=== PATIENT | female | born 1995 | race Caucasian/White ===

== ENCOUNTER → 2017-11-19 | Outpatient (CLI) | payer MEDICAID ==
[~2017-11-19] MED LIST: PREN1CAP7 PO
== END ==
LOC: HPND 14:59
PROVIDERS: ATTEND Obstetrics & Gynecology
DX: Z36.3 Encounter for antenatal screening for malformations (principal)
CPT/HCPCS: 76805

== ENCOUNTER 2017-12-04 11:04 | Emergency (ER) | payer MEDICAID ==
--- NOTE | 2017-12-04 11:13 | PD ---
HPI Chief Complaint Leg swelling Date Seen: Dec 04, 2017 Time Seen: 11:13 Travel History International Travel<30 Days: No Contact w/Intl Traveler<30Days: No History of Present Illness HPI Patient is a 22 year old at 23 weeks gestation by first trimester US, ANGEL 03/31/2018, who presents to the OB ED with bilateral LE swelling. It started this morning and is described as throbbing. She denies leakage of fluid, vaginal bleeding, and contractions. She feels baby moving regularly. She denies LA/N/V/D/fever/sick contacts/SOB/calf pain/dizziness/seeing spots. OB care is with [facility]. Of note, patient has gained 28lb this so far, and she gained this amount during entire previous . Prepregnancy with 170 lb, currently 198lb. History Past Medical History Medical History: Denies Significant Hx Obstetric History Obstetric History G1: 3 yr male, , no complications reported G2: current Past Surgical History Surgical History: No Previous Surgery Family History Family History: Negative Social History Alcohol Use: No Tobacco Use: Yes (1/2 PPD whole ) Substance Abuse: No Allergies-Medications (Allergen,Severity, Reaction): Coded Allergies: No Known Allergies (Unverified Adverse Reaction, Unknown, 09/11/17) Home Meds Active Scripts W/O Vit A W/ Fe Fumar (Citranatal [place]) 27-1-260 Mg Cap, 1 CAP PO DAILY for Nutritional Supplement, #30 CAP 11 Refills Prov:Greta Kelly 08/15/17 W/O Vit A W/ Fe Fumar (Citranatal [place]) 27-1-260 Mg Cap, 1 CAP PO DAILY for Nutritional Supplement, #30 CAP 0 Refills Prov:David Nguyen MD 08/15/17 Review of Systems Except as stated in HPI: all other systems reviewed are Neg Physical Exam Narrative GENERAL: Well-nourished, well-developed patient. SKIN: Warm and dry. No rashes or ecchymoses. HEAD: Normocephalic and atraumatic. EYES: No scleral icterus. No injection or drainage. ENT: No nasal drainage noted. Mucous membranes pink. Airway patent. NECK: Supple, trachea midline. No JVD. CARDIOVASCULAR: Regular rate and rhythm without murmurs, gallops, or rubs. RESPIRATORY: Breath sounds equal bilaterally. No accessory muscle use. ABDOMEN/GI: Abdomen soft, non-tender, bowel sounds present, no rebound, no guarding. Gravid to 20 weeks. GENITOURINARY: deferred Uterine Contractions: absent FHR: 150s EXTREMITIES: No significant cyanosis or edema. 39cm bilaterally and equal. No nodules or cords palpable. Tenderness is bilaterally and generalized. Negative Guanaco's bilaterally. BACK: Nontender without obvious deformity. No CVA tenderness. NEUROLOGICAL: Awake and alert. Motor and sensory grossly within normal limits. Five out of 5 muscle strength in all muscle groups. Normal speech. Data Data Vital Signs Reviewed: Yes (BP 116/57, P80, R18, T 98F) MDM Medical Record Reviewed: Yes Narrative Course / MDM 22 year old at 23 weeks gestation by first trimester US, ANGEL 03/31/2018 presenting with LE bilateral pain and swelling. Lower Extremity Pain: Low suspicion for DVT based on history and exam. Leg swelling is bilateral and consistent with state. VS wnl and no respiratory symptoms to increase suspicion for PE. Wells score 0, suggesting low probability of PE or DVT. Likely related to weight gain (already 28 lb in second trimester), counseled. Patient reluctant to take acetaminophen at home, counseled on safety of this medication during . Counseled on cessation of smoking and taking PNV. Discharge home with close f/u with her OB provider. Intrauterine : Normal HR in second trimester, reassuring. [facility] follow up scheduled PO hydration recommended, PNV recommended Routine care CHARLES Mae Diagnosis Diagnosis: Primary Impression: related leg pain in second trimester, antepartum Disposition: DISCHARGE HOME Condition: Stable Patient Instructions: General Instructions Virginia Serrato MD Dec 04, 2017 11:13
[2017-12-04] MEDS ORDERED: ACETAMINOPHEN 325 MG TAB PO ONE (11:45)
== END 2017-12-04 11:59 | disposition home or self-care (01) ==
LOC: HOBED 11:04
DX: O99.89 Other specified diseases and conditions complicating pregnancy, childbirth and the puerperium (principal); M79.89 Other specified soft tissue disorders; M79.606 Pain in leg, unspecified; O99.332 Smoking (tobacco) complicating pregnancy, second trimester; F17.210 Nicotine dependence, cigarettes, uncomplicated; Z3A.23 23 weeks gestation of pregnancy
CPT/HCPCS: 99282

== ENCOUNTER 2018-02-07 13:00 | Emergency (ER) | payer MEDICAID ==
--- NOTE | 2018-02-07 14:05 | PD ---
HPI Chief Complaint Abdominal pain, back pain Date Seen: Feb 07, 2018 Travel History International Travel<30 Days: No Contact w/Intl Traveler<30Days: No Known Affected Area: No History of Present Illness HPI Patient is a 22-year-old at 32/4 weeks gestation that presents to the [place] [facility] ED with a chief complaint of lower back pain 2 weeks and lower suprapubic abdominal pain that began this morning. Patient describes the suprapubic pain as a "tightening/squeezing pain that feels like her pelvic bone will break in half". This morning, patient states that when she went to urinates, she noticed blood when she wiped. This happened twice. In addition, patient reports abdominal pain that is not as bad as the back pain of the suprapubic pain and thick, creamy discharge that is more than normal. She denies fever/chills, nausea/vomiting, decreased appetite, chest pain, blurry vision, dysuria, vaginal itching. She endorses headaches and pedal edema during this . No gush/leakage of fluid and she has been feeling baby move. Patient gets her care at [facility] and states that her has been miserable but all her labs so far have been normal and her blood pressures have also been normal. She had an ultrasound on November 20 which showed a grade 1 posterior placenta with no signs of previa. Weeks Gestation: 32 Para: 1 : 2 History Past Medical History Medical History: Denies Significant Hx Obstetric History Obstetric History G1: 3 yr male, , no complications reported G2: current Past Surgical History Surgical History: No Previous Surgery Family History Narrative Family History No family history of asthma Maternal grandmother has diabetes and hypertension Social History Alcohol Use: No (Drank 1 glass of wine 3 days ago) Tobacco Use: Yes (5 cigarettes per day) Substance Abuse: No Allergies-Medications (Allergen,Severity, Reaction): Coded Allergies: No Known Allergies (Unverified Adverse Reaction, Unknown, 09/11/17) Home Meds Active Scripts Nitrofurantoin Macrocrystal (Nitrofurantoin Macrocrystal) 100 Mg Cap, 100 MG PO BID for Infection for 7 Days, #14 CAP 0 Refills Prov:Leslie Real MD R2 02/07/18 Metronidazole (Metronidazole) 500 Mg Tab, 500 MG PO BID for Infection for 7 Days , #14 TAB 0 Refills Prov:Leslie Real MD R2 02/07/18 W/O Vit A W/ Fe Fumar (Citranatal [place]) 27-1-260 Mg Cap, 1 CAP PO DAILY for Nutritional Supplement, #30 CAP 11 Refills Prov:Greta KellyP 08/15/17 W/O Vit A W/ Fe Fumar (Citranatal [place]) 27-1-260 Mg Cap, 1 CAP PO DAILY for Nutritional Supplement, #30 CAP 0 Refills Prov:David Nguyen MD 08/15/17 Review of Systems Except as stated in HPI: all other systems reviewed are Neg General / Constitutional: No: Fever, Chills Eyes: No: Blurred Vision HENT: Headaches Cardiovascular: Edema Respiratory: Short of Breath (When she sleeps at night) Gastrointestinal: Abdominal Pain, No: Nausea, Vomiting, Diarrhea, Loss of Appetite Genitourinary: Discharge, No: Dysuria, Vaginal Bleeding (Spotting when she wiped) Skin: No Rash Physical Exam Narrative GENERAL: Well-nourished, well-developed patient. SKIN: Warm and dry. HEAD: Normocephalic and atraumatic. EYES: No scleral icterus. No injection or drainage. ENT: No nasal drainage noted. Mucous membranes pink. Airway patent. NECK: Supple, trachea midline. No JVD. CARDIOVASCULAR: Regular rate and rhythm without murmurs, gallops, or rubs. RESPIRATORY: Breath sounds equal bilaterally. No accessory muscle use. ABDOMEN/GI: Abdomen soft, non-tender, bowel sounds present, no rebound, no guarding Gravid to 32 weeks size GENITOURINARY: External Genitalia: intact and normal in appearance Cervix: Posterior Dilatation: 0cm Effacement: 0% Station: -3 Presentation: [] Membranes: intact Uterine Contractions: none FHT's: Category: I Baseline: 130 Reactive: multiple accels present Variability: moderate Decels: none EXTREMITIES: No cyanosis or edema. BACK: Nontender without obvious deformity. Minimal CVA tenderness. NEUROLOGICAL: Awake and alert. Motor and sensory grossly within normal limits. Five out of 5 muscle strength in all muscle groups. Normal speech. SPECULUM EXAM: Vagina and cervix show no lesions, presence of cream colored frothy discharge. OS patent. No cervical friability. No blood seen in the vaginal vault Data Data Vital Signs Reviewed: Yes Orders Orders Urinalysis - C+S If Indicated (02/07/18 13:29) Vital Signs (Adult) .ON ADMISSION (02/07/18 13:31) ^ Labor Status (02/07/18 13:31) ^ Non Stress Test (02/07/18 13:31) ^ Hydration (02/07/18 13:31) Wet Prep Profile (02/07/18 13:50) Fentanyl Inj (Fentanyl Inj) (02/07/18 14:15) Labs Laboratory Tests Test 02/07/18 13:10 [facility] Medical Record Reviewed: Yes Interpretation(s) 22-year-old at 32/4 weeks gestation presents with suprapubic pain found to have a UTI and bacterial vaginosis Plan 1. IUP - heart tones category 1, reassuring -Continue routine care 2. UTI -UA shows moderate leukocyte esterase, 31 WBC, rare WBC clumps, small occult blood, culture indicated -UA findings and clinical assessment are consistent with acute cystitis -Start Macrobid 100 mg p.o. twice daily 7 days -Fentanyl 25 mcg IM 1 for pain -Encourage adequate hydration and Tylenol at home 3. Bacterial vaginosis -Wet prep profile pending, however, clue cells seen on urinalysis and frothy vaginal discharge consistent with bacterial vaginosis -Start Flagyl 500 mg p.o. twice daily 7 days Discharge home Diagnosis Diagnosis: Primary Impression: UTI (urinary tract infection) Additional Impression: Bacterial vaginosis Disposition: DISCHARGE HOME Condition: Stable Scripts Nitrofurantoin Macrocrystal (Nitrofurantoin Macrocrystal) 100 Mg Cap 100 MG PO BID for Infection for 7 Days, #14 CAP 0 Refills Prov: Leslie Real MD R2 02/07/18 Metronidazole (Metronidazole) 500 Mg Tab 500 MG PO BID for Infection for 7 Days, #14 TAB 0 Refills Prov: Leslie Real MD R2 02/07/18 Patient Instructions: Abdominal Pain in (ED), Urinary Tract Infection in (ED) Leslie Real MD R2 Feb 07, 2018 14:05
[2018-02-07 14:12] LABS: AMORPHOUS SEDIMENT, URINE RARE; BACTERIA, URINE MANY /hpf; BILIRUBIN, URINE NEG (NEG); BLOOD, URINE SMALL (NEG); GLUCOSE,URINE NEG (NEG); KETONE, URINE 10 mg/dL (NEG); MUCUS URINE FEW /lpf (OCC); NITRITE,URINE NEG (NEG); PH, URINE 6.5 (5.0-8.5); TRANSITIONAL EPI CELLS, URINE <1 /hpf; URINE COLOR YELLOW (YELLW/STRAW); URINE LEUKOCYTE ESTERASE MOD (NEG); WHITE BLOOD CELL CLUMPS RARE
[2018-02-07 14:13] LABS: SQUAMOUS EPITHELIAL CELL URINE 10 /hpf (0-5)
[2018-02-07] MEDS ORDERED: NITR1CAP36 PO (14:44)
[2018-02-07] MEDS ORDERED: METR1TAB76 PO (14:44)
== END 2018-02-07 14:56 | disposition home or self-care (01) ==
LOC: HOBED 13:00
DX: O23.43 Unspecified infection of urinary tract in pregnancy, third trimester (principal); O23.593 Infection of other part of genital tract in pregnancy, third trimester; B96.89 Other specified bacterial agents as the cause of diseases classified elsewhere; Z3A.32 32 weeks gestation of pregnancy
CPT/HCPCS: 59025; 81001; 87086; 87210; 96372; 99284; J3010

== ENCOUNTER 2018-03-26 15:09 | Inpatient (IN) ==
[2018-03-26] MEDS ORDERED: Measles/Mumps/Rubella Vaccine Inj 0.5 ML Vial SQ ONE (16:00)
[2018-03-26] MEDS ORDERED: Penicillin G Potassium Inj 5,000,000 UNIT in Sodium Chloride 0.9% Inj 100 ML IV.SIG ONE (16:00)
[2018-03-26] MEDS ORDERED: Naloxone Inj 0.4 MG/ML Vial IV.PUSH PRN ×2 (16:00→21:37)
[2018-03-26] MEDS ORDERED: fentaNYL Citrate Inj 100 MCG/2 ML Ampul IV.PUSH PRN (16:00)
[2018-03-26] MEDS ORDERED: Oxytocin 30 Units/500ml Premix 30 UNITS/500 ML BAG IV.SIG ONE (16:00)
[2018-03-26] MEDS ORDERED: Sodium Chlor 0.9% Inj 500 ML IV.SIG PRN (16:00)
[2018-03-26] MEDS ORDERED: Sod Chloride 0.9% Inj 1,000 ML IV.CONT PRN (16:00)
[2018-03-26] MEDS ORDERED: Citric Acid/Sodium Citrate Liq 30 ML UDC PO SCH (16:00)
[2018-03-26] MEDS ORDERED: Diphtheria/Tetanus/Pertussis Vaccine Inj 0.5 ML Syringe IM ONE (16:00)
--- NOTE | 2018-03-26 16:00 | ED ---
History of Present Illness Service: 22-year-old at 39/2 presenting to the OB ED with complaints of contractions. Patient states that for the last 3 hours she has been having contractions every 6 minutes and been increasing in intensity and frequency. She also states that today she has had some possible leakage of fluid as her underwear has been wet. Denies any gush of fluid. She also endorses some vaginal bleeding tonight prior to presentation. She states that she had blood on her toilet paper around 9 PM but it resolved by 3 AM. Somewhat less movement today as well. She denies any fever, shortness of breath, dysuria, constipation or diarrhea. Primary Care Physician: UNKNOWN Review of Systems All other systems reviewed negative except as stated in HPI PMFSH - Medical / Surgical Hx Neg / Unobtainable Medical Problems Denied: Yes Surgical History: No Previous Surgery - Tobacco History Smoking Status: Current every day smoker (10/d) - Alcohol History How Often Do You Have a Drink Containing Alcohol: Never - Substance Use History Substance History: No History of Abuse - Travel History Recent Travel in the [facility] Within the Last 8 Weeks: No Recent Travel Out of the Country Within the Last 8 Weeks: No Medications and Allergies Allergies Allergy/AdvReac Type Severity Reaction Status Date / Time No Known Allergies Allergy Verified 03/26/18 15:41 Home Medications Medication Instructions Recorded Confirmed Type No Known Home Medications 03/26/18 03/26/18 History Exam Vital signs: Vital Signs 03/26/18 15:35 Temperature 98.0 F Pulse Rate 96 H Respiratory Rate 18 Blood Pressure 132/63 Intake & Output 03/25/18 03/26/18 03/26/18 18:59 06:59 18:59 Weight 49.895 kg Narrative: GENERAL: Well-nourished, well-developed patient. SKIN: Warm and dry. HEAD: Normocephalic and atraumatic. EYES: No scleral icterus. No injection or drainage. ENT: No nasal drainage noted. Mucous membranes pink. Airway patent. NECK: Supple, trachea midline. No JVD. CARDIOVASCULAR: Regular rate and rhythm without murmurs, gallops, or rubs. RESPIRATORY: Breath sounds equal bilaterally. No accessory muscle use. ABDOMEN/GI: Abdomen soft, non-tender, bowel sounds present, no rebound, no guarding Gravid to 39 weeks size GENITOURINARY: External Genitalia: intact and normal in appearance Cervix: Posterior Dilatation: 5 cm Effacement: 50 Station: -3 Presentation: Vertex Membranes: Intact Uterine Contractions: Every 3-4 minutes FHT's: Category: 1 Baseline: 145 Reactive: y Variability: mod Decels: Absent EXTREMITIES: No cyanosis or edema. BACK: Nontender without obvious deformity. No CVA tenderness. NEUROLOGICAL: Awake and alert. Motor and sensory grossly within normal limits. Five out of 5 muscle strength in all muscle groups. Normal speech. Assessment and Plan - Plan 22-year-old 39/2 presenting to the OB ED with contractions and possible leakage of fluid. Found to be 5/50/-3. -Amnisure negative -GBS positive. No known allergies will treat with penicillin per protocol -Category 1 tracing with contractions every 3-4 minutes -Anticipate vaginal delivery. Otherwise routine labor and delivery orders Discharge Plan - Discharge Disposition Patient Disposition: 30 Still Patient - Physicians Team ED Provider: Jasiel Coughlin Primary Care Provider: Primary Care Renetta Mcclure - Rxs /Orders / Referrals /Forms Prescriptions: No Action No Known Home Medications - Discharge Instructions Print Language: Persian
--- NOTE | 2018-03-26 16:10 | P.HPOB ---
History of Present Illness Service: 22-year-old at 39/2 presenting to the OB ED with complaints of contractions. Patient states that for the last 3 hours she has been having contractions every 6 minutes and been increasing in intensity and frequency. She also states that today she has had some possible leakage of fluid as her underwear has been wet. Denies any gush of fluid. She also endorses some vaginal bleeding tonight prior to presentation. She states that she had blood on her toilet paper around 9 PM but it resolved by 3 AM. Somewhat less movement today as well. She denies any fever, shortness of breath, dysuria, constipation or diarrhea. Primary Care Physician: UNKNOWN Review of Systems All other systems reviewed negative except as stated in HPI PMFSH - Medical / Surgical Hx Neg / Unobtainable Medical Problems Denied: Yes Surgical History: No Previous Surgery - Tobacco History Smoking Status: Current every day smoker (10/d) - Alcohol History How Often Do You Have a Drink Containing Alcohol: Never - Substance Use History Substance History: No History of Abuse - Travel History Recent Travel in the [facility] Within the Last 8 Weeks: No Recent Travel Out of the Country Within the Last 8 Weeks: No Medications and Allergies Allergies Allergy/AdvReac Type Severity Reaction Status Date / Time No Known Allergies Allergy Verified 03/26/18 15:41 Home Medications Medication Instructions Recorded Confirmed Type No Known Home Medications 03/26/18 03/26/18 History Exam Vital signs: Vital Signs 03/26/18 15:35 Temperature 98.0 F Pulse Rate 96 H Respiratory Rate 18 Blood Pressure 132/63 Intake & Output 03/25/18 03/26/18 03/26/18 18:59 06:59 18:59 Weight 49.895 kg Narrative: GENERAL: Well-nourished, well-developed patient. SKIN: Warm and dry. HEAD: Normocephalic and atraumatic. EYES: No scleral icterus. No injection or drainage. ENT: No nasal drainage noted. Mucous membranes pink. Airway patent. NECK: Supple, trachea midline. No JVD. CARDIOVASCULAR: Regular rate and rhythm without murmurs, gallops, or rubs. RESPIRATORY: Breath sounds equal bilaterally. No accessory muscle use. ABDOMEN/GI: Abdomen soft, non-tender, bowel sounds present, no rebound, no guarding Gravid to 39 weeks size GENITOURINARY: External Genitalia: intact and normal in appearance Cervix: Posterior Dilatation: 5 cm Effacement: 50 Station: -3 Presentation: Vertex Membranes: Intact Uterine Contractions: Every 3-4 minutes FHT's: Category: 1 Baseline: 145 Reactive: y Variability: mod Decels: Absent EXTREMITIES: No cyanosis or edema. BACK: Nontender without obvious deformity. No CVA tenderness. NEUROLOGICAL: Awake and alert. Motor and sensory grossly within normal limits. Five out of 5 muscle strength in all muscle groups. Normal speech. Assessment and Plan - Plan 22-year-old 39/2 presenting to the OB ED with contractions and possible leakage of fluid. Found to be 5/50/-3. -Amnisure negative -GBS positive. No known allergies will treat with penicillin per protocol -Category 1 tracing with contractions every 3-4 minutes -Anticipate vaginal delivery. Otherwise routine labor and delivery orders
[2018-03-26 17:00] LABS: Baso % (Auto) 0.2 % (0.0-2.0); Eos # (Auto) 0.1 th/mm3 (0.0-0.4); Eos % (Auto) 0.9 % (0.0-4.0); Hematocrit 33.7 % (35.0-46.0); Hemoglobin 10.9 gm/dL (11.6-15.3); Lymph # (Auto) 2.7 th/mm3 (1.0-4.8); Lymph % (Auto) 15.9 % (9.0-44.0); Mean Corpuscular HGB Conc 32.5 % (32.0-36.0); Mean Corpuscular Hemoglobin 27.6 pg (27.0-34.0); Mean Platelet Volume 8.6 fL (7.0-11.0); Mono # (Auto) 1.1 th/mm3 (0.0-0.9); Mono % (Auto) 6.8 % (0.0-8.0); Neut # (Auto) 12.7 th/mm3 (1.8-7.7); Neut % (Auto) 76.2 % (16.0-70.0); Platelet Count 205 th/mm3 (150-450); Red Blood Count 3.97 mil/mm3 (4.00-5.30); Red Cell Distribution Width 15.2 % (11.6-17.2); White Blood Count 16.7 th/mm3 (4.0-11.0)
[2018-03-26] MEDS: fentaNYL Citrate Inj 100 MCG/2 ML Ampul IV.PUSH PRN ×2 (17:00→17:58)
[2018-03-26 17:16] LABS: Bacteria,Urine Occasional /hpf; Bilirubin,Urine Negative (Negative); Clarity,Urine Cloudy (Clear); Color,Urine Yellow (Yellw/Straw); Glucose,Urine (UA) Negative (Negative); Leukocyte Esterase,Urine Moderate (Negative); Nitrite,Urine Negative (Negative); Specific Gravity,Urine 1.011 (1.002-1.035); Squamous Epithelial Cell,Urine 35 /hpf (0-5)
[2018-03-26 17:18] LABS: Amphetamine Urine With Conf Neg (Neg); Benzodiazepine Urine With Conf Neg (Neg)
[2018-03-26] MEDS ORDERED: Oxytocin 30 Units/500ml Premix 30 UNITS/500 ML BAG IV.SIG PRN (17:50)
[2018-03-26] MEDS ORDERED: fentaNYL 2MCG-Bupiv 0.125% Epi 150 ML EPIDURAL ONE (18:20)
[2018-03-26] MEDS ORDERED: fentaNYL 2MCG-Bupiv 0.125% Epi 150 ML EPIDURAL PRN (19:04)
[2018-03-26] MEDS ORDERED: fentaNYL Citrate Inj 100 MCG/2 ML Ampul EPIDURAL ONE (19:04)
[2018-03-26] MEDS ORDERED: Penicillin G Potassium Inj 2,500,000 UNIT in Sodium Chlor 0.9% Inj 100 ML IV.SIG SCH (20:00)
[2018-03-26] MEDS ORDERED: Lidocaine PF 1.5% Inj 20 ML Ampule ONE (20:14)
[2018-03-26] MEDS ORDERED: Benzocaine 20% Top Spray 60 ML Can TOPICAL PRN (21:37)
[2018-03-26] MEDS ORDERED: Zolpidem Tartrate 5 MG Tablet PO PRN (21:37)
[2018-03-26] MEDS ORDERED: Acetaminophen 325 MG Tablet PO PRN (21:37)
[2018-03-26] MEDS ORDERED: Witch Hazel 50%/Glyderin 12.5% 40 Pad Jar RECTAL PRN (21:37)
[2018-03-26] MEDS ORDERED: Bisacodyl 10 MG Supp RECTAL PRN (21:37)
--- NOTE | 2018-03-26 21:43 | P.OBDELI ---
Weeks Gestation: 39 Artificial Rupture of Membrane: Yes Anesthesia: Epidural Episiotomy: none Vaginal Delivery: Normal Presentation: Occiput anterior Nuchal Cord: None Delayed Cord Clamping (45 sec): Yes Placenta: Spontaneous delivery, Intact Estimated blood loss (mL): 200 Infant: Male Infant Male A Infant Delivery Date: 03/26/18 Infant Delivery Time: 21:22 Weight: 3.75 kg score (1 min): 9 score (5 min): 9
[2018-03-26] MEDS ORDERED: Oxytocin 30 Units/500ml Premix 30 UNITS/500 ML BAG IV.CONT SCH (21:45)
[2018-03-26] MEDS: Ibuprofen 400 MG Tablet PO PRN (22:02)
[2018-03-26 22:56] LABS: Hepatitis A IgM Antibody Nonreactive (Nonreactive); Hepatitits B Surface Antigen Nonreactive (Nonreactive)
[2018-03-27] MEDS: Ibuprofen 400 MG Tablet PO PRN (05:41)
--- NOTE | 2018-03-27 07:26 | P.PNOB ---
Subjective Post day: 1 Interval history: Patient is a 22-year-old delivered at 39 weeks and 2 days. Patient is day 1 after . Patient's pain of some abdominal cramping is well- controlled. Patient reports eating and drinking without any nausea or vomiting. Patient reports minimal bleeding. Patient has passed gas and bowel movement. Patient is walking without lower extremity pain or shortness of breath. Patient reports desire for contraception IUD and formula-feeding. Objective Vital Signs/I&O: Vital Signs 03/26/18 15:35 03/26/18 16:36 03/26/18 16:37 Temperature 98.0 F Pulse Rate 96 H 89 Respiratory Rate 18 18 Blood Pressure 132/63 130/68 03/26/18 17:07 03/26/18 18:27 03/26/18 18:45 Temperature Pulse Rate 93 H 86 77 Respiratory Rate 20 19 Blood Pressure 109/66 126/70 135/70 03/26/18 18:51 03/26/18 18:56 03/26/18 19:06 Temperature Pulse Rate 86 80 86 Respiratory Rate Blood Pressure 131/60 118/63 149/81 H 03/26/18 19:11 03/26/18 19:30 03/26/18 20:15 Temperature 97.7 F Pulse Rate 96 H 97 H Respiratory Rate 18 20 Blood Pressure 127/69 128/75 03/26/18 20:16 03/26/18 20:31 03/26/18 20:46 Temperature Pulse Rate 73 86 82 Respiratory Rate Blood Pressure 127/68 133/73 124/68 03/26/18 20:56 03/26/18 21:01 03/26/18 21:15 Temperature Pulse Rate 75 114 H Respiratory Rate 18 Blood Pressure 111/54 L 142/99 H 03/26/18 21:31 03/26/18 21:37 03/26/18 21:46 Temperature 98.7 F Pulse Rate 110 H 78 Respiratory Rate 18 Blood Pressure 126/76 111/64 03/26/18 21:54 03/26/18 22:00 03/26/18 22:15 Temperature Pulse Rate 76 Respiratory Rate 18 18 Blood Pressure 123/74 03/26/18 22:16 03/26/18 22:30 03/26/18 22:31 Temperature Pulse Rate 79 67 Respiratory Rate 18 Blood Pressure 119/83 123/80 03/26/18 22:59 Temperature 98.5 F Pulse Rate 66 Respiratory Rate 18 Blood Pressure 116/67 Intake & Output 03/26/18 03/27/18 03/27/18 18:59 06:59 18:59 Intake Total 100 / 100 Balance 100 / 100 Weight 49.895 kg Intake: IV 100 / 100 Pfizerpen-G Inj 2,500,000 UNIT 100 / 100 In NS Inj 100 ML @ 200 mls/hr IV.SIG Q4H [facility] Rx#:[id number] Other: Weight On Admission 49.895 kg Result Diagrams: 03/26/18 16:30 Objective Remarks: GENERAL: Well-nourished, well-developed patient. CARDIOVASCULAR: Regular rate and rhythm without murmurs, gallops, or rubs. RESPIRATORY: Breath sounds equal bilaterally. No accessory muscle use. ABDOMEN/GI: Abdomen soft, non-tender. Fundus: Firm, non-tender at umbilicus. GENITOURINARY: Light to moderate bleeding. EXTREMITIES: No cyanosis or edema, non-tender, without signs of DVT. Medications and IVs: Active Medications Acetaminophen (Tylenol) 650 mg PO Q4H PRN PRN Reason: PAIN SCALE 1 TO 2 Last Admin: 03/27/18 05:41 Dose: 650 mg Al Hydroxide/Mg Hydroxide (Milk Of Magnesia Liq) 30 ml PO Q12H PRN PRN Reason: Mild Constipation Benzocaine (Americaine 20% Top [place]) 1 spray TOPICAL Q4H PRN PRN Reason: For Perineum Discomfort Bisacodyl (Dulcolax Supp) 10 mg RECTAL DAILY PRN PRN Reason: SEVERE CONSITIPATION Citric Acid/Sodium Citrate (Sodium Citrate/Citric Acid Liq) 30 ml PO ARTIFACTS [facility] Stop: 03/30/18 15:59 Ephedrine Sulfate (Ephedrine/Ns Syringe) 10 mg IV.PUSH UNSCH PRN PRN Reason: SEE LABEL COMMENTS Stop: 03/27/18 19:04 Fentanyl Citrate (Fentanyl Inj) 50 mcg IV.PUSH Q1H PRN PRN Reason: Pain Scale 3 - 5 Fentanyl Citrate (Fentanyl Inj) 100 mcg IV.PUSH Q1H PRN PRN Reason: PAIN SCALE 6 TO 10 Last Admin: 03/26/18 17:58 Dose: 100 mcg Lactated Ringer's (Lr 1000 Ml Inj) 1,000 mls @ 125 mls/hr IV.CONT .Q8H [facility] Last Admin: 03/26/18 18:00 Dose: 125 mls/hr Lactated Ringer's (Lr 1000 Ml Inj) 1,000 mls @ 3,000 mls/hr IV.SIG UNSCH PRN PRN Reason: compromise or epidural Last Admin: 03/26/18 18:00 Dose: 3,000 mls/hr Sodium Chloride (Ns Inj) 500 mls @ 1,000 mls/hr IV.SIG UNSCH PRN PRN Reason: SEE LABEL COMMENTS Sodium Chloride (Ns Inj) 1,000 mls @ 100 mls/hr IV.CONT .Q10H PRN PRN Reason: SEE LABEL COMMENTS Penicillin G Potassium 2,500, (000 unit/ Sodium Chloride) 100 mls @ 200 mls/hr IV.SIG Q4H [facility] Last Infusion: 03/26/18 22:23 Dose: Infused Oxytocin (Pitocin 30 Units/Ns 500 Ml Premix) 30 units in 500 mls @ 1 mls/hr IV.SIG TITRATE PRN; Protocol PRN Reason: For induction of labor Last Admin: 03/26/18 18:01 Dose: 1 milliunit/min, 1 mls/hr Fentanyl/Bupivacaine/Sodium Chlor (Fentanyl 2 Mcg-Bupiv 0.125% Epi) 150 mls @ 12 mls/hr EPIDURAL PRN PRN PRN Reason: for Labor Pain Ibuprofen (Motrin) 800 mg PO Q8H PRN PRN Reason: For cramping Last Admin: 03/27/18 05:41 Dose: 800 mg Lactulose (Lactulose Liq) 30 ml PO DAILY PRN PRN Reason: SEVERE CONSITIPATION Lidocaine HCl (Xylocaine 1% Inj) 0.1 ml I-DERMAL PRN PRN PRN Reason: For IV start Stop: 03/29/18 15:59 Lidocaine HCl (Xylocaine 1% Inj) 10 ml INFILTRATN PRN PRN PRN Reason: For episiotomy repair Stop: 03/28/18 15:59 Mineral Oil (Muri-Lube Oil) 10 ml TOPICAL PRN PRN PRN Reason: PRN perineal massage Miscellaneous Information (Misc Information) 1 each OTHER UNSCH PRN PRN Reason: SEE LABEL COMMENTS Stop: 03/27/18 19:04 Miscellaneous Information (Misc Information) 1 each OTHER UNSCH PRN PRN Reason: SEE LABEL COMMENTS Stop: 03/27/18 19:04 Naloxone HCl (Narcan Inj) 0.1 mg IV.PUSH Q2M PRN PRN Reason: for opiate reversal Naloxone HCl (Narcan Inj) 0.1 mg IV.PUSH Q2M PRN PRN Reason: for opiate reversal Ondansetron HCl (Zofran Inj) 4 mg IV.PUSH Q6H PRN PRN Reason: NAUSEA OR VOMITING Ondansetron HCl (Zofran Odt) 4 mg PO Q6H PRN PRN Reason: NAUSEA OR VOMITING Oxycodone/Acetaminophen (Percocet 5/325 Mg) 1 tab PO Q4H PRN PRN Reason: PAIN SCALE 6 TO 10 Senna/Docusate Sodium (Tiffanie-Colace) 1 tab PO BID [place] Sennosides (Senokot) 17.2 mg PO Q12H PRN PRN Reason: Moderate Constipation Sodium Chloride (Ns Flush) 2 ml IV.FLUSH BID [place] Sodium Chloride (Ns Flush) 2 ml IV.FLUSH PRN PRN PRN Reason: FLUSH AFTER USING IV ACCESS Witch [place]/Glycerin (Tucks Pads) 1 applicatio RECTAL QID PRN PRN Reason: HEMORRHOIDS Zolpidem Tartrate (Ambien) 5 mg PO HS PRN PRN Reason: SLEEP Assessment and Plan - Diagnosis (1) Vaginal delivery Code(s): O80 - Encounter for full-term uncomplicated delivery Status: Acute Plan: Patient is a 22-year-old delivered at 39 weeks and 2 days. Patient is day 1 after . Patient was counseled to do 6 weeks of pelvic rest. Patient was counseled to follow up in 6 weeks. Patient requested follow-up and contraception. --AF VSS --Continue routine care --Motrin and Tylenol when necessary for pain --Encourage OOB --Pelvic rest for 6 weeks will need follow-up appointment at that time. --Contraception: IUD outpatient --Anticipate discharge tomorrow
[2018-03-27] MEDS ORDERED: Senna/Docusate Sodium 8.6/50 MG Tablet PO SCH (09:00)
[2018-03-28] MEDS: Ibuprofen 400 MG Tablet PO PRN (06:43)
--- NOTE | 2018-03-28 08:24 | P.PNOB ---
Subjective Post day: 2 Interval history: Patient is a 22-year-old delivered at 39 weeks and 2 days. Patient is day 2 after . Patient's pain of some abdominal cramping is well- controlled. Patient reports eating and drinking without any nausea or vomiting. Patient reports minimal bleeding. Patient has passed gas and had bowel movement. Patient is walking without lower extremity pain or shortness of breath. Patient reports desire for contraception IUD and formula-feeding. Objective Vital Signs/I&O: Vital Signs 03/27/18 20:00 03/28/18 08:06 Temperature 98.0 F 98.0 F Pulse Rate 72 66 Respiratory Rate 18 18 Blood Pressure 117/72 123/76 Result Diagrams: 03/26/18 16:30 Objective Remarks: GENERAL: Well-nourished, well-developed patient. CARDIOVASCULAR: Regular rate and rhythm without murmurs, gallops, or rubs. RESPIRATORY: Breath sounds equal bilaterally. No accessory muscle use. ABDOMEN/GI: Abdomen soft, non-tender. Fundus: Firm, non-tender at umbilicus. GENITOURINARY: Light to moderate bleeding. EXTREMITIES: No cyanosis or edema, non-tender, without signs of DVT. Medications and IVs: Active Medications Acetaminophen (Tylenol) 650 mg PO Q4H PRN PRN Reason: PAIN SCALE 1 TO 2 Last Admin: 03/27/18 05:41 Dose: 650 mg Al Hydroxide/Mg Hydroxide (Milk Of Magnesia Liq) 30 ml PO Q12H PRN PRN Reason: Mild Constipation Benzocaine (Americaine 20% Top [place]) 1 spray TOPICAL Q4H PRN PRN Reason: For Perineum Discomfort Bisacodyl (Dulcolax Supp) 10 mg RECTAL DAILY PRN PRN Reason: SEVERE CONSITIPATION Citric Acid/Sodium Citrate (Sodium Citrate/Citric Acid Liq) 30 ml PO [employer] [facility] Stop: 03/30/18 15:59 Fentanyl Citrate (Fentanyl Inj) 50 mcg IV.PUSH Q1H PRN PRN Reason: Pain Scale 3 - 5 Fentanyl Citrate (Fentanyl Inj) 100 mcg IV.PUSH Q1H PRN PRN Reason: PAIN SCALE 6 TO 10 Last Admin: 03/26/18 17:58 Dose: 100 mcg Lactated Ringer's (Lr 1000 Ml Inj) 1,000 mls @ 125 mls/hr IV.CONT .Q8H [facility] Last Admin: 03/26/18 18:00 Dose: 125 mls/hr Lactated Ringer's (Lr 1000 Ml Inj) 1,000 mls @ 3,000 mls/hr IV.SIG UNSCH PRN PRN Reason: compromise or epidural Last Admin: 03/26/18 18:00 Dose: 3,000 mls/hr Sodium Chloride (Ns Inj) 500 mls @ 1,000 mls/hr IV.SIG UNSCH PRN PRN Reason: SEE LABEL COMMENTS Sodium Chloride (Ns Inj) 1,000 mls @ 100 mls/hr IV.CONT .Q10H PRN PRN Reason: SEE LABEL COMMENTS Penicillin G Potassium 2,500, (000 unit/ Sodium Chloride) 100 mls @ 200 mls/hr IV.SIG Q4H [facility] Last Infusion: 03/26/18 22:23 Dose: Infused Oxytocin (Pitocin 30 Units/Ns 500 Ml Premix) 30 units in 500 mls @ 1 mls/hr IV.SIG TITRATE PRN; Protocol PRN Reason: For induction of labor Last Admin: 03/26/18 18:01 Dose: 1 milliunit/min, 1 mls/hr Fentanyl/Bupivacaine/Sodium Chlor (Fentanyl 2 Mcg-Bupiv 0.125% Epi) 150 mls @ 12 mls/hr EPIDURAL PRN PRN PRN Reason: for Labor Pain Ibuprofen (Motrin) 800 mg PO Q8H PRN PRN Reason: For cramping Last Admin: 03/28/18 06:43 Dose: 800 mg Lactulose (Lactulose Liq) 30 ml PO DAILY PRN PRN Reason: SEVERE CONSITIPATION Lidocaine HCl (Xylocaine 1% Inj) 0.1 ml I-DERMAL PRN PRN PRN Reason: For IV start Stop: 03/29/18 15:59 Lidocaine HCl (Xylocaine 1% Inj) 10 ml INFILTRATN PRN PRN PRN Reason: For episiotomy repair Stop: 03/28/18 15:59 Mineral Oil (Muri-Lube Oil) 10 ml TOPICAL PRN PRN PRN Reason: PRN perineal massage Naloxone HCl (Narcan Inj) 0.1 mg IV.PUSH Q2M PRN PRN Reason: for opiate reversal Naloxone HCl (Narcan Inj) 0.1 mg IV.PUSH Q2M PRN PRN Reason: for opiate reversal Ondansetron HCl (Zofran Inj) 4 mg IV.PUSH Q6H PRN PRN Reason: NAUSEA OR VOMITING Ondansetron HCl (Zofran Odt) 4 mg PO Q6H PRN PRN Reason: NAUSEA OR VOMITING Oxycodone/Acetaminophen (Percocet 5/325 Mg) 1 tab PO Q4H PRN PRN Reason: PAIN SCALE 6 TO 10 Senna/Docusate Sodium (Tiffanie-Colace) 1 tab PO BID [place] Sennosides (Senokot) 17.2 mg PO Q12H PRN PRN Reason: Moderate Constipation Sodium Chloride (Ns Flush) 2 ml IV.FLUSH BID [place]GET Sodium Chloride (Ns Flush) 2 ml IV.FLUSH PRN PRN PRN Reason: FLUSH AFTER USING IV ACCESS Witch [place]/Glycerin (Tucks Pads) 1 applicatio RECTAL QID PRN PRN Reason: HEMORRHOIDS Zolpidem Tartrate (Ambien) 5 mg PO HS PRN PRN Reason: SLEEP Assessment and Plan - Diagnosis (1) Vaginal delivery Code(s): O80 - Encounter for full-term uncomplicated delivery Status: Acute Plan: routine pp care d/c home circ done - Attending Attestation The exam, history, and the medical decision-making described in the above note were completed with the assistance of the resident physician. I reviewed and agree with the findings presented. I attest that I had a [id number] encounter with the patient on the same day.
[2018-03-28] MEDS ORDERED: Measles/Mumps/Rubella Vaccine Inj 0.5 ML Vial SQ ONE (14:00)
== END 2018-03-28 13:55 | disposition home or self-care (01) ==
LOC: HOBED 15:09 → H2E 16:02 → H1EA 22:50
PROVIDERS: ADMIT Obstetrics & Gynecology Maternal & Fetal Medicine; ATTEND Obstetrics & Gynecology Maternal & Fetal Medicine